=== PATIENT | male | born 1965 | race Caucasian/White ===

== ENCOUNTER 2017-09-23 16:58 | Emergency (ER) | payer BC, OTHER ==
[2017-09-23 17:50] LABS: Absolute Lymphocytes (CBC) 2.8 K/uL (0.7-4.9); Absolute Neutrophil 6.1 K/uL (1.8-8.0); Basophils % 0.8 % (0-1.3); Eosinophils % 1.8 % (0-4.4); Hematocrit 58.8 % (39.6-49.0); Lymphocytes % 27.6 % (15.3-44.8); MCH 32.8 pg (27.0-35.0); MCV 98.3 fL (80-100); MPV 8.1 fL (7.6-11.3); Monocytes % 9.8 % (3.3-12.3); RBC Red Blood Cell Count 5.98 M/uL (4.33-5.43)
[2017-09-23] MEDS ORDERED: ASPIRIN 81 MG CHEWABLE TABLET ONE (17:50)
[2017-09-23 17:57] LABS: Bicarbonate 33 mEq/L (21-31); Glucose Level 88 mg/dL (65-120); Potassium 3.8 mEq/L (3.6-5.0); Sodium Level 137 mEq/L (135-145)
[2017-09-23 17:58] LABS: Protime INR 0.97
[2017-09-23] MEDS ORDERED: NA CHLORIDE 0.9% 1,000 ML ONE (18:01)
[2017-09-23 18:03] LABS: ALT/SGPT 56 IU/L (10-60); AST/SGOT 31 IU/L (10-42); Albumin 4.4 g/dL (3.2-5.5); Alkaline Phosphatase 65 IU/L (42-121); BUN Blood Urea Nitrogen 7 mg/dL (6-20); Bilirubin Direct 0.1 mg/dL (0-0.2); Bilirubin Total 0.8 mg/dL (0.3-1.2); Creatine Phosphokinase 61 IU/L (22-269); Magnesium 1.9 mg/dL (1.8-2.5); Protein, Total 7.7 g/dL (6.0-8.3)
[2017-09-23 18:06] LABS: CKMB Creatine Kinase MB 2.2 ng/ml (0.3-4.0)
--- NOTE | 2017-09-23 19:14 | RAD REPORT ---
EXAM DESCRIPTION: Michael Single View09/23/2017 6:35 pm CLINICAL HISTORY: Chest pain COMPARISON: none FINDINGS: The lungs appear clear of acute infiltrate. The heart is normal size IMPRESSION: No acute abnormalities displayed
--- NOTE | 2017-09-23 19:26 | RAD REPORT ---
EXAM DESCRIPTION: CT - Angio Aorta For Dissection - 09/23/2017 7:10 pm CLINICAL HISTORY: . Chest and abdominal pain COMPARISON: None TECHNIQUE: Computed tomography angiography of the chest, abdomen pelvis were obtained. 100 cc Isovue 370 was administered intravenously. Coronal and sagittal reconstruction were performed. All CT scans are performed using dose optimization technique as appropriate and may include automated exposure control or mA/KV adjustment according to patient size. FINDINGS: An aortic dissection is not seen. An aortic aneurysm is not displayed. 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 The SMA and FRANCISCO are pa tent A lung consolidation is not present. A pericardial effusion is not seen. A pleural effusion is not n oted. The liver,spleen, pancreas adrenals and kidneys demonstrate no significant abnormality. The appendix is normal. There no evidence diverticulitis. No ascites is noted. IMPRESSION: Negative for an aortic dissection. 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
[2017-09-23 19:39] LABS: Urine Blood TRACE (NEG); Urine Glucose NEGATIVE (NEG); Urine Protein NEGATIVE (NEG); Urine Specific Gravity <1.005 (1.005-1.030)
--- NOTE | 2017-09-23 19:44 | EDPHYS ---
Physician Documentation [facility] Name: Americo Santacruz Age: 52 yrs Sex: Male : 1965 Arrival Date: 09/23/2017 Time: 17:03 Bed 20 Private MD: ED Physician Tino Jaime HPI: 09/23 17:41 This 52 yrs old Male presents to ER via Ambulatory with complaints of Chest kb Pain, Shoulder Pain. 17:41 The patient or guardian reports chest pain that is located primarily in the anterior kb chest wall, left. Onset: 5 hour(s) ago. The pain radiates to the left arm, left back. Associated signs and symptoms: Pertinent positives: diaphoresis, nausea, Pertinent negatives: abdominal pain, cough, dizziness, headache, lower extremity pain, lower extremity swelling, lightheadedness, near syncope, palpitations, recent travel, shortness of breath, syncope, vomiting. The chest pain is described as aching. Duration: The patient or guardian reports a single episode, that is still ongoing. Modifying factors: The symptoms are alleviated by nothing. the symptoms are aggravated by nothing. Severity of pain: At its worst the pain was moderate in the emergency department the pain is unchanged. The patient has not experienced similar symptoms in the past. The patient has not recently seen a physician. Historical: - Allergies: 17:10 Sulfa (Sulfonamide Antibiotics); aa5 - PMHx: 17:10 None; aa5 - PSHx: 17:10 Tonsillectomy; aa5 - Immunization history:: Adult Immunizations up to date. - Social history:: Smoking status: Patient/guardian denies using tobacco. ROS: 17:40 Constitutional: Negative for fever, chills, and weight loss, ENT: Negative for injury, kb pain, and discharge, Neck: Negative for injury, pain, and swelling, Respiratory: Negative for shortness of breath, cough, wheezing, and pleuritic chest pain, Abdomen/GI: Negative for abdominal pain, nausea, vomiting, diarrhea, and constipation, Back: Negative for injury and pain, : Negative for injury, bleeding, discharge, and swelling, MS/Extremity: Negative for injury and deformity, Skin: Negative for injury, rash, and discoloration, Neuro: Negative for headache, weakness, numbness, tingling, and seizure. 17:40 Cardiovascular: Positive for chest pain, Negative for edema, orthopnea, palpitations, paroxysmal nocturnal dyspnea. Exam: 17:40 Constitutional: This is a well developed, well nourished patient who is awake, alert, kb and in no acute distress. Head/Face: Normocephalic, atraumatic. ENT: Nares patent. No nasal discharge, no septal abnormalities noted. Tympanic membranes are normal and external auditory canals are clear. Oropharynx with no redness, swelling, or masses, exudates, or evidence of obstruction, uvula midline. Mucous membranes moist. Neck: Trachea midline, no thyromegaly or masses palpated, and no cervical lymphadenopathy. Supple, full range of motion without nuchal rigidity, or vertebral point tenderness. No Meningismus. Chest/axilla: Normal chest wall appearance and motion. Nontender with no deformity. No lesions are appreciated. Cardiovascular: Regular rate and rhythm with a normal S1 and S2. No gallops, murmurs, or rubs. Normal PMI, no JVD. No pulse deficits. Respiratory: Lungs have equal breath sounds bilaterally, clear to auscultation and percussion. No rales, rhonchi or wheezes noted. No increased work of breathing, no retractions or nasal flaring. Abdomen/GI: Soft, non-tender, with normal bowel sounds. No distension or tympany. No guarding or rebound. No evidence of tenderness throughout. Back: No spinal tenderness. No costovertebral tenderness. Full range of motion. Skin: Warm, dry with normal turgor. Normal color with no rashes, no lesions, and no evidence of cellulitis. MS/ Extremity: Pulses equal, no cyanosis. Neurovascular intact. Full, normal range of motion. Neuro: Awake and alert, GCS 15, oriented to person, place, time, and situation. Cranial nerves II-XII grossly intact. Motor strength 5/5 in all extremities. Sensory grossly intact. Cerebellar exam normal. Normal gait. Vital Signs: 17:10 BP 126 / 98; Pulse 108; Resp 18 S; Temp 98.0(TE); Pulse Ox 98% on R/A; Weight 83.91 kg aa5 (R); Height 5 ft. 10 in. (177.80 cm) (R); Pain 8/10; 17:46 BP 146 / 95; Pulse 102; Resp 16; Pulse Ox 96% ; Pain 8/10; jl7 18:36 BP 139 / 97; Pulse 92; Resp 16; Pulse Ox 96% ; jl7 19:33 BP 133 / 93; Pulse 85; Resp 16 S; Pulse Ox 96% on R/A; jd3 17:10 Body Mass Index 26.54 (83.91 kg, 177.80 cm) aa5 MDM: 17:25 Patient medically screened. kb 17:40 The patient was given aspirin in the Emergency Department. Data reviewed: vital signs, kb nurses notes. Data interpreted: Pulse oximetry: on room air is 98 %. Interpretation: normal. 18:40 ED course: Dr Jaime evaluated pt as well. Pt was offered admission for further cardiac kb workup because pt has not had one in the past. Pt does not want to be admitted. Will stay for a repeat trop, ekg, and a CT chest, but then requests to leave. States he lives near the hospital and will return for worsening symptoms or any other concerns. . 19:41 Counseling: I had a detailed discussion with the patient and/or guardian regarding: the kb historical points, exam findings, and any diagnostic results supporting the discharge/admit diagnosis, lab results, radiology results, the need for outpatient follow up, a chief clinical dietitian, a family practitioner, a molder wax ball, to return to the emergency department if symptoms worsen or persist or if there are any questions or concerns that arise at home. ED course: Pt educated on all diagnostic findings including CT, CXR, EKG and labs. Will follow up with PCP on Monday. . 09/23 17:26 Order name: Basic Metabolic Panel 09/23 17:26 Order name: BNP; Complete Time: 18:29 kb 09/23 17:26 Order name: CBC with Diff; Complete Time: 17:56 kb 09/23 17:26 Order name: Ckmb 09/23 17: Order name: CPK 09/23 17:26 Order name: LFT's 09/23 17:26 Order name: Magnesium; Complete Time: 18:08 kb 09/23 17:26 Order name: PT-INR; Complete Time: 18:00 kb 09/23 17:26 Order name: Ptt, Activated; Complete Time: 18:00 kb 09/23 17:26 Order name: Troponin (emerg Dept Use Only); Complete Time: 18:08 kb 09/23 17:26 Order name: Basic Metabolic Panel; Complete Time: 18:08 EDMS 09/23 17:26 Order name: CKMB Creatine Kinase MB; Complete Time: 18:08 EDMS 09/23 17:26 Order name: Creatine Phosphokinase; Complete Time: 18:08 EDMS 09/23 17:26 Order name: Liver (Hepatic) Function; Complete Time: 18:08 EDMS 09/23 17:26 Order name: XRAY Chest (1 view); Complete Time: 19:18 kb 09/23 17:26 Order name: EKG; Complete Time: 17:26 kb 09/23 17:26 Order name: Cardiac monitoring; Complete Time: 17:44 kb 09/23 17:26 Order name: EKG - Nurse/Tech; Complete Time: 17:44 kb 09/23 17:26 Order name: IV Saline Lock; Complete Time: 17:44 kb 09/23 17:26 Order name: Labs collected and sent; Complete Time: 17:43 kb 09/23 17:26 Order name: O2 Per Protocol; Complete Time: 17:43 kb 09/23 17:26 Order name: O2 Sat Monitoring; Complete Time: 17:43 kb 09/23 17:26 Order name: Urine Dipstick-Ancillary (obtain specimen); Complete Time: 19:32 kb 09/23 18:39 Order name: CT Aorta for Dissection; Complete Time: 19:27 kb 09/23 18:39 Order name: Troponin (emerg Dept Use Only); Complete Time: 19:19 kb 09/23 18:39 Order name: EKG; Complete Time: 18:40 kb 09/23 18:39 Order name: EKG - Nurse/Tech; Complete Time: 18:50 kb 09/23 19:33 Order name: Urine Dipstick--Ancillary (enter results); Complete Time: 19:49 em1 Administered Medications: 17:50 Drug: Aspirin Chewable Tablet 324 mg Route: PO; jl7 20:01 Follow up: Response: No adverse reaction jd3 18:11 Drug: NS 0.9% 1000 ml Route: IV; Rate: 1000 ml; Site: right antecubital; jl7 20:01 Follow up: Response: No adverse reaction; IV Status: Completed infusion; IV Intake: jd3 1000ml Disposition: 09/24 10:33 Co-signature as Attending Physician, Tino Jaime MD. rn Disposition: 09/23/17 19:43 Discharged to Home. Impression: Chest pain, unspecified. - Condition is Stable. - Discharge Instructions: Nonspecific Chest Pain, [id number]. - Medication Reconciliation Form, Thank You Letter, Antibiotic Education, Prescription Opioid Use form. - Follow up: Emergency Department; When: As needed; Reason: Worsening of condition. Follow up: Private Physician; When: 2 - 3 days; Reason: Recheck today's complaints, Continuance of care, Re-evaluation by your physician. Signatures: Dispatcher [employer] EDNE Kat Tran, PURCHASING ASSISTANT-C PURCHASING ASSISTANT-Ckb Tion Jaime MD MD rn Raheel, Mercy, RN RN aa5 Trey Reeder RN RN jl7 Tex Gandhi RN RN jd3 Corrections: (The following items were deleted from the chart) 09/23 20:01 19:43 09/23/2017 19:43 Discharged to Home. Impression: Chest pain, unspecified. jd3 Condition is Stable. Forms are Medication Reconciliation Form, Thank You Letter, Antibiotic Education, Prescription Opioid Use. Follow up: Emergency Department; When: As needed; Reason: Worsening of condition. Follow up: Private Physician; When: 2 - 3 days; Reason: Recheck today's complaints, Continuance of care, Re-evaluation by your physician. kb
--- NOTE | 2017-09-23 19:44 | ER ---
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 aa5 Pt states "I was sweating". Transition of care: patient was not received from another setting of care. Onset of symptoms was September 23, 2017. Initial Sepsis Screen: Does the patient meet any 2 criteria? No. Patient's initial sepsis screen is negative. Does the patient have a suspected source of infection? No. Patient's initial sepsis screen is negative. Care prior to arrival: None. 17:09 Method Of Arrival: Ambulatory aa5 17:09 Acuity: PATRICIA 3 aa5 Historical: - Allergies: 17:10 Sulfa (Sulfonamide Antibiotics); aa5 - PMHx: 17:10 None; aa5 - PSHx: 17:10 Tonsillectomy; aa5 - Immunization history:: Adult Immunizations up to date. - Social history:: Smoking status: Patient/guardian denies using tobacco. Screenin:46 Abuse screen: Denies threats or abuse. Denies injuries from another. Nutritional jl7 screening: No deficits noted. Tuberculosis screening: No symptoms or risk factors identified. Fall Risk IV access (20 points). Total Dobbins Fall Scale indicates No Risk (0-24 pts). Assessment: 17:35 General: Appears in no apparent distress. uncomfortable, Behavior is calm, cooperative, jl7 appropriate for age. Pain: Complains of pain in anterior aspect of left upper chest Pain radiates to left arm Pain currently is 8 out of 10 on a pain scale. Quality of pain is described as sharp, Pain began 4 hours ago. Is continuous. Neuro: Level of Consciousness is awake, alert, obeys commands, Oriented to person, place, time, situation. Cardiovascular: Heart tones S1 S2 present Patient's skin is warm and dry. Respiratory: Airway is patent Respiratory effort is even, unlabored, Respiratory pattern is regular, symmetrical, Breath sounds are clear bilaterally. GI: No signs and/or symptoms were reported involving the gastrointestinal system. Patient currently denies diarrhea, nausea, vomiting. : No signs and/or symptoms were reported regarding the genitourinary system. EENT: No signs and/or symptoms were reported regarding the EENT system. Derm: Skin is pink, warm \\T\\ dry. 18:30 Reassessment: Dr. Jaime at bedside discussing plan of care. jl7 19:32 Reassessment: Patient appears in no apparent distress at this time. Patient and/or jd3 family updated on plan of care and expected duration. Pain level reassessed. Patient is alert, oriented x 3, equal unlabored respirations, skin warm/dry/pink. Patient states feeling better. 19:59 Reassessment: Patient appears in no apparent distress at this time. Patient and/or jd3 family updated on plan of care and expected duration. Pain level reassessed. Patient is alert, oriented x 3, equal unlabored respirations, skin warm/dry/pink. pt reporting understanding of discharge instructions, even and steady gait upon discharge. Vital Signs: 17:10 BP 126 / 98; Pulse 108; Resp 18 S; Temp 98.0(TE); Pulse Ox 98% on R/A; Weight 83.91 kg aa5 (R); Height 5 ft. 10 in. (177.80 cm) (R); Pain 8/10; 17:46 BP 146 / 95; Pulse 102; Resp 16; Pulse Ox 96% ; Pain 8/10; jl7 18:36 BP 139 / 97; Pulse 92; Resp 16; Pulse Ox 96% ; jl7 19:33 BP 133 / 93; Pulse 85; Resp 16 S; Pulse Ox 96% on R/A; jd3 17:10 Body Mass Index 26.54 (83.91 kg, 177.80 cm) aa5 ED Course: 17:03 Patient arrived in ED. sb2 17:10 Triage completed. aa5 17:10 Arm band placed on Patient placed in an exam room, on a stretcher. aa5 17:20 Trey Reeder RN is Primary Nurse. jl7 17:25 Kat Tran FNP-C is PHCP. kb 17:25 Tino Jaime MD is Attending Physician. kb 17:46 Patient has correct armband on for positive identification. Placed in gown. Bed in low jl7 position. Call light in reach. Side rails up X 1. vehicle monitor technician on. Pulse ox on. NIBP on. 17:46 Initial lab(s) drawn, by me, sent to lab. Inserted saline lock: 20 gauge in right jl7 antecubital area, using aseptic technique. Blood collected. Patient maintains SpO2 saturation greater than 95% on room air. 18:18 X-ray completed. Portable x-ray completed in exam room. Patient tolerated procedure la2 well. 18:35 XRAY Chest (1 view) In Process Unspecified. EDMS 19:02 Report given to SEBASTIAN Ellis. jl7 19:10 CT Aorta for Dissection In Process Unspecified. EDMS 19:10 CT completed. Patient moved to CT via wheelchair. Patient moved back from CT. vr 19:57 No provider procedures requiring assistance completed. IV discontinued, intact, jd3 bleeding controlled, No redness/swelling at site. Pressure dressing applied. Administered Medications: 17:50 Drug: Aspirin Chewable Tablet 324 mg Route: PO; jl7 20:01 Follow up: Response: No adverse reaction jd3 18:11 Drug: NS 0.9% 1000 ml Route: IV; Rate: 1000 ml; Site: right antecubital; jl7 20:01 Follow up: Response: No adverse reaction; IV Status: Completed infusion; IV Intake: jd3 1000ml Intake: 20:01 IV: 1000ml; Total: 1000ml. jd3 Outcome: 19:43 Discharge ordered by . kb 19:58 Discharged to home ambulatory. jd3 19:58 Condition: stable 19:58 Discharge instructions given to patient, Instructed on discharge instructions, follow up and referral plans. Demonstrated understanding of instructions, follow-up care. 20:01 Patient left the ED. jd3 Signatures: Dispatcher [employer] EDMS Kat Tran, AWNING MAKER-C AWNING MAKER-CkMercy Lam, RN RN aa5 Ivette Ruiz Jahala, RN RN jl7 Vy Peterson Jonathon RN RN jd3 Radha Mcmahon2
--- NOTE | 2017-09-24 05:48 | EKG ---
Test Date: 2017-09-23 Test Time: 18:46:28 Golf Ball Trimmer: MARICRUZ MEASUREMENT RESULTS: Intervals: Rate: 86 UT: 136 QRSD: 98 QT: 374 QTc: 447 [place]: P: -1 UT: 136 QRS: -35 T: 31 INTERPRETIVE STATEMENTS: Normal sinus rhythm Left axis deviation Inferior infarct, age undetermined Abnormal ECG Compared to ECG 09/23/2017 17:18:04 No significant changes Electronically Signed On 09-24-17 05:47:52 CDT by Cullen Jeffery
--- NOTE | 2017-09-24 05:49 | EKG ---
Test Date: 2017-09-23 Test Time: 17:18:04 Surgeon Assistant: BETTY MEASUREMENT RESULTS: Intervals: Rate: 96 TN: 146 QRSD: 92 QT: 348 QTc: 439 [place]: P: 26 TN: 146 QRS: -46 T: 54 INTERPRETIVE STATEMENTS: Normal sinus rhythm Left axis deviation Inferior infarct, age undetermined Abnormal ECG No previous ECG available for comparison Electronically Signed On 09-24-17 05:48:03 CDT by Cullen Jeffery
== END 2017-09-23 20:01 | disposition home or self-care (01) ==
LOC: ER 16:58
DX: R07.9 Chest pain, unspecified (principal); Z88.2 Allergy status to sulfonamides
CPT/HCPCS: 36415; 71045; 71275; 74175; 80048; 80076; 81003; 82550; 82553; 83735; 83880; 84484; 85025; 85610; 85730; 93005; 96360; 96361; 99285; J7030; Q9967